=== PATIENT | female | born 1945 | race Caucasian/White ===

== ENCOUNTER → 2017-01-10 | Outpatient (CLI) | payer OTHER, MEDICARE | LOC: FIMAGING 14:46 | PROVIDERS: ATTEND Orthopaedic Surgery Orthopaedic Surgery of the Spine | DX: M51.34 Other intervertebral disc degeneration, thoracic region (principal); M51.36 Other intervertebral disc degeneration, lumbar region; M51.37 Other intervertebral disc degeneration, lumbosacral region; M51.24 Other intervertebral disc displacement, thoracic region; M51.26 Other intervertebral disc displacement, lumbar region ==

== ENCOUNTER 2018-07-04 11:01 | Emergency (ER) | payer OTHER, MEDICARE ==
[2018-07-04 11:13] VITALS: BP 180/117
--- NOTE | 2018-07-04 11:41 | EDPHY ---
H & P Time Seen by Provider: 07/04/18 11:19 HPI/ROS: CHIEF COMPLAINT: Skin rash HISTORY OF PRESENT ILLNESS: Patient was camping a week ago in [facility] , stated a cabin in her own sleeping back. Developed a rash on her left shoulder and back the next day. She saw her primary care practice on Thursday of this past week and was prescribed prednisone. She continued to get very itchy and went back 2 days later and was again continued on prednisone added antihistamines. She presents today with rash which is on her face and arms primarily as well as her low back, very itchy. Not associated with wheezing or tongue or throat swelling. Not associated for fever or chills. Symptoms of itching a little bit better with medication, but the rash is getting worse. REVIEW OF SYSTEMS: Eye: no change in vision ENT: no sore throat or throat tightness. Cardiac: no chest pain or syncope Pulmonary: No wheezing or shortness of breath Abdomen: no vomiting, diarrhea, abdominal pain Musculoskeletal: no back pain Skin: The HPI Neuro: no headache Constitutional: no fever : no urinary symptoms A comprehensive 10 point review of systems is otherwise negative aside from elements mentioned in the history of present illness. PAST MEDICAL HISTORY: Includes breast cyst, , hysterectomy, cataract surgery. GI bleed and cervical stenosis Social history: Nonsmoker General Appearance: Alert and conversant, cooperative. Eyes: No scleral icterus. ENT, Mouth: Normal mucous membranes. Normal uvula, no trismus, no stridor or drooling. Respiratory: Normal respiratory effort, breath sounds equal, lungs are clear to auscultation. No wheezing. Cardiovascular: Regular rate and rhythm. Gastrointestinal: Abdomen is soft and non tender. Neurological: Alert, face symmetric, normal motor and sensory in extremities. Skin: No zoster. She has erythematous rash with linear confluence on her hands as well as in her web spaces. It extends up her elbow and is in places scaling, also on her left posterior shoulder and had her waistline in the back. The rest of her trunk is unaffected. It is also on her face but stops at the neck. She has 2 small ones on her left leg below the knee but otherwise not on her lower extremities. Musculoskeletal: No peripheral edema. Psychiatric: Not agitated. Emergency Department course/MDM: This point would consider scabies or bedbugs, would treat with permethrin and warned about also treating clothes and bedding with washing or plastic bags. Prednisone refilled. She can try Vistaril for itching. She does not appear to have any airway involvement at this time. It does not appear to be cellulitis. It is very itchy, not painful or tender, no lymphangitis, not febrile. Smoking Status: Former smoker Constitutional: Initial Vital Signs Temperature (C) 36.4 C 07/04/18 11:07 Heart Rate 71 07/04/18 11:07 Respiratory Rate 16 07/04/18 11:07 Blood Pressure 180/117 H 07/04/18 11:07 O2 Sat (%) 95 07/04/18 11:07 O2 Delivery Mode Room Air Allergies/Adverse Reactions: aspirin Allergy (Verified 04/24/15 11:54) Sulfa (Sulfonamide Antibiotics) Allergy (Verified 12/03/14 13:22) Home Medications: Medication Instructions Recorded Pantoprazole Sodium [Protonix 40mg 40 mg PO DAILY 04/19/15 (*)] Permethrin [Elimite] 60 gm TP AD #1 cream..g. 07/04/18 hydrOXYzine HCL [Vistaril 25MG] 25 mg PO Q6 PRN #20 tab 07/04/18 predniSONE [prednisone 20mg (RX)] 40 mg PO DAILY 7 Days tab 07/04/18 MDM/Departure - Depart Disposition: Home, Routine, Self-Care Clinical Impression: Skin rash Condition: Good Instructions: Acute Rash (ED) Additional Instructions: It is possible that you have scabies or bed bugs. Wash all clothing and/or bedding that you have touched since the onset of the rash in hot water. Any bedding or closing that can't be washed in hot water, seal in an airtight plastic bag for the next 2-3 weeks. Please follow-up with your primary care doctor or referral survey worker tomorrow if worse. Prescriptions: hydrOXYzine HCL [Vistaril 25MG] 25 mg PO Q6 PRN #20 tab PRN Reason: itching Permethrin [Elimite] 60 gm TP AD #1 cream..g. predniSONE [prednisone 20mg (RX)] 40 mg PO DAILY 7 Days tab Referrals: Larissa Irizarry MD [Primary Care Provider] - As per Instructions
== END 2018-07-04 11:45 | disposition home or self-care (01) ==
DX: R21 Rash and other nonspecific skin eruption (principal)